=== PATIENT | male | born 1980 | race Caucasian/White ===

== ENCOUNTER 2021-01-17 12:00 | Outpatient (CLI) | payer BC, SELFPAY | END 2021-01-17 12:01 | disposition home or self-care (01) | LOC: SLEEP 01-18 10:20 | PROVIDERS: Family Provider Family Medicine; Visit Provider Family Medicine | DX: R40.0 Somnolence (principal); R53.83 Other fatigue | CPT/HCPCS: G0399 ==

== ENCOUNTER 2024-08-16 06:42 | Outpatient (CLI) | payer BC, SELFPAY ==
[2024-08-16 06:44] VITALS: BMI 34.9
--- NOTE | 2024-08-16 06:44 | ECG_ITS ---
[facility] Test Date: 2024-08-16 Pat Name: Tony Angel Department: Room: Gender: Male Senior Financial: : 1980 Requested By: Brent Kraus Order Number: [id number] Praveena MD: Scarlett Pena M.D. Interpretive Statements Lung unchanged pre/post procedure; Intraprocedure shortess of breath; Symptoms resoled by discharge PROCEDURE: The baseline electrocardiogram showed normal sinus rhythm with normal ST-Ts with features of right ventricular conduction delay. At the baseline, the patient's blood pressure was 138/102 mm Hg with a heart rate of 78 bpm. The patient exercised for 8 minutes and 30 seconds on a standard Derek protocol. Patient attained a maximum heart rate of 169 beats per minute(96% of the maximum predicted heart rate) with a blood pressure at the peak exercise of 211/88 mm Hg. The EKG at the peak exercise revealed no significant changes. Patient did not have any chest pain or any significant arrhythmis with the exercise Sestamibi was injected 1 minute prior to the peak exercise During the recovery phase, there were no new changes. Blood pressure at the end of the recovery phase was 131/67 mm Hg with a heart rate of 100 per minute. CONCLUSION: 1. No significant EKG changes with the [treadmill exercise 2. No exercise-induced chest pain or cardiac arrhythmia 3. Fair exercise tolerance, attained a maximum of 10.2 METs 4. Sestamibi/Sestamibi perfusion results pending; see separate report. Electronically Signed On 08-18-2024 22:50:35 CDT by Scarlett Pena M.D. [email or web address]
--- NOTE | 2024-08-16 06:45 | NMCV_ITS ---
NM amandeep perf SPECT r/s* [id number] Tony Angel Age: 44 Gender: M : 1980 Exam Date: 08/16/2024 07:46 Ordering Phys: Brent Santamaria MD Technologist: RAJESH White Exam Location: [facility] Indications: CP STRESS TEST Please see separate stress test report [facility] for full findings IMAGE PROTOCOL Rest/Stress 1 Exercise Day Radiopharmaceutical Dose (mCi) Administration Site Administered by Rest: Tc-99m 10.5 IV Ursula Quinteros, FITTER HELPER Sestamibi Stress:Tc-99m 32.9 IV Ursula Quinteros, FITTER HELPER Sestamibi Rest: 16-Aug-2024 60 Discovery 630 Stress: 16-Aug-2024 15 Discovery 630 Radiopharmaceutical was injected at 93 % maximum heart rate. Images obtained in supine and prone position. SPECT RESULTS Technical Quality: Good Raw Data Analysis: Normal Image Corrections: No attenuation or motion correction applied Summed Stress Score: 0 Summed Rest Score: 0 Summed Difference Score: 0 PERFUSION FINDINGS Fairly uniform myocardial tracer uptake with no significant Perfusion abnormalities FUNCTIONAL RESULTS (calculated via Gated SPECT) Stress Image LV EF (%): 76 Stress EDV (mL):98 TID: 0.61 Stress ESV (mL):24 FUNCTIONAL FINDINGS: Segmental wall motion analysis revealing no gross wall motion abnormalities IMPRESSIONS 1. Myocardial perfusion imaging revealing uniform myocardial tracer uptake with no significant perfusion abnormalities. 2. Normal LV ejection fraction of 76% 3. LV wall motion analysis revealing no gross wall motion abnormalities. 4. Normal LV volume. Low probability for coronary ischemia, based on the above findings Dr Scarlett Pena MD FACC (Electronically Signed) Final Date: 16 August 2024 21:34 S
[2024-08-16 08:40] VITALS: BP 131/67; PULSE 100
== END 2024-08-16 06:43 | disposition home or self-care (01) ==
PROVIDERS: PCP Family Medicine; Visit Provider Family Medicine
DX: R07.9 Chest pain, unspecified (principal)
CPT/HCPCS: 36415; 78452; 93017; A9500

== ENCOUNTER → 2024-08-31 13:08 | Outpatient (BNVA) | payer BC, SELFPAY | PROVIDERS: PCP Family Medicine; Visit Provider Family Medicine | DX: R07.9 Chest pain, unspecified (principal) | CPT/HCPCS: 85025; 86140; 86618; 86664; 86665; 86666; 86757 ==